=== PATIENT | male | born 1995 | race Two or more races ===

== ENCOUNTER 2017-03-25 19:32 | Emergency (ER) | payer SELFPAY ==
[~2017-03-25] VITALS: Ht 190.5 cm; Wt 86.2 kg
[2017-03-25 20:03] VITALS: BP 166/101
--- NOTE | 2017-03-25 20:07 | PHYS DOC ---
Adult General Chief Complaint Chief Complaint: EYE PROBLEMS HPI HPI Patient is a 21 year old male presents emergency department stating that he was plain soccer yesterday and they had kicked the ball with some meloxicam up. He states that he feels like he still has some amoxicillin his left eye. He states that he is having some difficulty with irritation and discomfort. Patient was noted to have an elevated blood pressure here in the emergency department. He denies any history of hypertension. Patient states he has not taken anything for pain. He does state his pain is a 5 out of 10. He denies any drainage or discharge from the eye. Patient is Latvian-speaking only and has an levelman at bedside. Review of Systems Review of Systems Constitutional: Denies fever or chills [] Eyes: Denies change in visual acuity, redness. C/o left eye pain HENT: Denies nasal congestion or sore throat [] Respiratory: Denies cough or shortness of breath [] Cardiovascular: No additional information not addressed in HPI [] GI: Denies abdominal pain, nausea, vomiting, bloody stools or diarrhea [] : Denies dysuria or hematuria [] Musculoskeletal: Denies back pain or joint pain [] Integument: Denies rash or skin lesions [] Neurologic: Denies headache, focal weakness or sensory changes [] Endocrine: Denies polyuria or polydipsia [] Current Medications Current Medications Current Medications Medications (Trade) Dose Ordered Sig/Tiburcio Start Time Stop Time Status Last Admin Dose Admin Balanced Salt Solution (Eye-Stream) 120 ml 1X ONCE 03/25/17 20:30 03/25/17 20:31 DC 03/25/17 20:27 120 ML Fluorescein Sodium (Ful-Hortencia) 1 strip 1X ONCE 03/25/17 20:15 03/25/17 20:16 DC 03/25/17 20:13 1 STRIP Tetracaine HCl (Tetracaine) 1 drop 1X ONCE 03/25/17 20:15 03/25/17 20:16 DC 03/25/17 20:13 1 DROP Allergies Allergies Allergies Coded Allergies Type Severity Reaction Last Updated Verified No Known Drug Allergies 03/25/17 No Physical Exam Physical Exam Constitutional: Well developed, well nourished, no acute distress, non-toxic appearance. [] HENT: Normocephalic, atraumatic, bilateral external ears normal, oropharynx moist, no oral exudates, nose normal. [] Eyes: PERRLA, EOMI, conjunctiva red with no discharge noted. Neck: Normal range of motion, no tenderness, supple, no stridor. [] Cardiovascular:Heart rate regular rhythm, no murmur [] Lungs & Thorax: Bilateral breath sounds clear to auscultation [] Skin: Warm, dry, no erythema, no rash. [] Back: No tenderness Extremities: No tenderness, no cyanosis, no clubbing, ROM intact, no edema. [] Neurologic: Alert and oriented X 3, normal motor function, normal sensory function, no focal deficits noted. [] Psychologic: Affect normal, judgement normal, mood normal. [] Current Patient Data Vital Signs Vital Signs Date Time Temp Pulse Resp B/P (MAP) Pulse Ox O2 Delivery O2 Flow Rate FiO2 03/25/17 20:03 98.3 78 18 99 Room Air 98.3 EKG EKG [] Radiology/Procedures Radiology/Procedures [] Course & Med Decision Making Course & Med Decision Making Pertinent Labs and Imaging studies reviewed. (See chart for details) Tetracaine was placed into the left eye. Further eye exam completed with eyelid inverted with no foreign body noted. No corneal abrasion noted with no uptake with fluorescein. Eye was irrigated with saline. Patient states that his eye still feels the same. Patient will be discharged home with recommendations for Zaditor drops for allergies as both eye appear red. Patient will be discharged home in stable condition signs and symptoms to return back to emergency department as been provided. Discharge instructions was provided to patient via levelman at bedside. Patient was instructed to monitor his blood pressure in follow-up with the primary care physician. [] Dragon Disclaimer Dragon Disclaimer This electronic medical record was generated, in whole or in part, using a voice recognition dictation system. Departure Departure Impression: Primary Impression: Left eye pain Disposition: 01 HOME, SELF-CARE Condition: STABLE Referrals: NO PCP (PCP) Patient Instructions: Allergic Conjunctivitis, [id number], Eye - Foreign Body , [id number], Eyedrops Additional Instructions: Activity as tolerated. Tylenol or ibuprofen for pain and discomfort. Cool Packs may also help the eyes feel less irritated. History of blood pressure follow-up primary care physician in regards to elevation. zaditor may be used [id number] to help with eye irritation. Stop taking if you feel as though the eye is becoming dry. Follow-up with ophthalmology in the next 24-48 hours. Return back to emergency prior signs symptoms of become worse. MACY RM APRN March 25, 2017 20:07
[2017-03-25] MEDS ORDERED: TETRACAINE 0.5% OPHTH SOLUTION 4ML BOTTLE. OS ONE (20:15)
[2017-03-25] MEDS ORDERED: FLUORESCEIN OPHTH TEST STRIP. OS ONE (20:15)
[2017-03-25] MEDS ORDERED: EYE-STREAM OPHTH SOLUTION 120 ML BOTTLE. OS ONE (20:30)
== END 2017-03-25 20:50 | disposition home or self-care (01) ==
LOC: ER 19:32
DX: H57.12 Ocular pain, left eye (principal); W52.XXXA Crushed, pushed or stepped on by crowd or human stampede, initial encounter; Y93.66 Activity, soccer; Y99.8 Other external cause status; Y92.89 Other specified places as the place of occurrence of the external cause
CPT/HCPCS: 99283